=== PATIENT | female | born 1940 ===

== ENCOUNTER 2020-05-27 11:47 | Emergency (ER) | payer OTHER ==
[~2020-05-27] VITALS: Ht 162.6 cm; Wt 61.2 kg
[~2020-05-27 11:47] MED LIST: TOPROL XL25 MG; [UNRECOGNIZED DRUG - OTHER]
[2020-05-27] MEDS ORDERED: KEPPRA XR500 MG (12:00)
[2020-05-27] MEDS ORDERED: MEMANTINE HCL10 MG PO (12:00)
[2020-05-27] MEDS ORDERED: FOLIC ACID0.8 M1 (12:01)
[2020-05-27] MEDS ORDERED: ATORVASTATIN CA10 MG PO (12:01)
[2020-05-27] MEDS ORDERED: TRAZODONE HCL100 MG PO (12:01)
[2020-05-27] MEDS ORDERED: CIPRO500 MG PO (16:50)
== END 2020-05-27 18:46 | disposition home or self-care (01) ==
LOC: ER 11:47
DX: R53.1 Weakness (principal); R19.7 Diarrhea, unspecified; R53.81 Other malaise